=== PATIENT | female | born 1985 | race Two or more races ===

== ENCOUNTER 2018-01-03 11:10 | Emergency (ER) | payer MEDICAID ==
[~2018-01-03] VITALS: Ht 165.1 cm; Wt 104.3 kg
--- NOTE | 2018-01-03 11:10 | NUR ---
BB FROM A [facility] FOR [facility], FOUND LYING IN THE FLOOR, NAD NOTED, VSS, RESP EVEN AND UNLABORED, PT WAS PUT ON THE MONITOR, WAITING FOR MD BUNCH.
--- NOTE | 2018-01-03 12:27 | NUR ---
BLOOD SAMPLE AND URINE SAMPLE SENT TO LAB
[2018-01-03 12:32] LABS: BASOPHILS # (AUTO) 0.3 /CMM (0.0-0.2); BASOPHILS % (AUTO) 1.9 % (0.0-2.0); EOSINOPHILS % (AUTO) 0.3 % (0.0-6.0); HEMATOCRIT 35 % (33-45); HEMOGLOBIN 11.9 g/dL (11.5-14.8); LYMPHOCYTES % (AUTO) 12.2 % (20.0-44.0); MEAN CORPUSCULAR HEMOGLOBIN 26 PG (26.0-33.0); MEAN CORPUSCULAR HGB CONC 34 g/dl (31.0-36.0); MEAN CORPUSCULAR VOLUME 77 fL (82-100); MONOCYTES # (AUTO) 0.7 /CMM (0.1-1.30); NEUTROPHILS # (AUTO) 13.4 /CMM (1.8-8.9); NEUTROPHILS % (AUTO) 81.6 % (43.0-81.0); PLATELET COUNT (AUTO) 329 /CMM (150-450); RDW COEFFICIENT OF VARIATION 14.9 (11.5-15.0); RED BLOOD CELL COUNT(AUTO) 4.56 MIL/uL (4.0-5.2); WHITE BLOOD COUNT (AUTO) 16.4 K/uL (4.3-11.0)
[2018-01-03 12:33] LABS: CALCIUM, SERUM 8.7 mg/dL (8.5-10.1); CREATININE 0.7 mg/dL (0.6-1.3); POTASSIUM 3.6 mmol/L (3.5-5.1)
[2018-01-03 12:37] LABS: ACETAMINOPHEN < 10 ug/ml (10-30); ALCOHOL, BLOOD < 3 mg/dL (0-0); SALICYLATE 2.4 mg/dL (2.8-20.0)
[2018-01-03 12:38] LABS: ALBUMIN 3.6 g/dL (3.4-5.0); BILIRUBIN,TOTAL 0.4 mg/dL (0.2-1.0); TOTAL PROTEIN, SERUM 8.1 g/dL (6.4-8.2)
[2018-01-03 12:40] LABS: APPEARANCE,URINE Clear (CLEAR); BILIRUBIN,URINE Negative (NEGATIVE); BLOOD, URINE Moderate Ery/uL (NEGATIVE); COLOR,URINE Yellow (YELLOW); KETONES,URINE Negative (NEGATIVE); LEUKOCYTE ESTERASE ,URINE Negative (NEGATIVE); NITRITE, URINE Negative (NEGATIVE); PROTEIN,URINE Negative (NEGATIVE); UGLUCOSE Negative (NEGATIVE); UROBILINOGEN,URINE 0.2 EU/dL (0.2)
[2018-01-03 12:49] LABS: BACTERIA,URINE Rare /HPF (None Seen); SQUAMOUS EPITHELIAL CELL,UR Few /HPF (None Seen); WBC,URINE 0-2 /HPF (0-3); YEAST,URINE Rare /HPF (None Seen)
--- NOTE | 2018-01-03 13:30 | NUR ---
PT IS UNABLE TO STAY STILL FOR CT SCAN. ER WILL CALL WHEN READY.
[2018-01-03] MEDS ORDERED: LORAZEPAM INJ 2 MG/ML VIAL IM ONE (14:00)
[2018-01-03] MEDS ORDERED: LORAZEPAM INJ 2 MG/ML VIAL ONE (14:04)
[2018-01-03 14:05] LABS: BAND % (MANUAL) 1 % (0.0-5.0); NEUTROPHILS % (MANUAL) 82 (42-76)
[2018-01-03 14:06] LABS: LYMPHOCYTES % (MANUAL) 16 % (16-48); MONOCYTES % (MANUAL) 1 % (0-11.0)
--- NOTE | 2018-01-03 16:20 | NUR ---
Patient is resting comfortably in bed with eyes closed. Easily aroused. VSS
[2018-01-03] MEDS ORDERED: AZITHROMYCIN 250 MG TABLET ONE (23:00)
[2018-01-03] MEDS ORDERED: AZITHROMYCIN 250 MG TABLET PO ONE (23:00)
--- NOTE | 2018-01-03 23:30 | NUR ---
RECEIVED REPORT AT THIS TIME. RESP EVEN AND UNLABORED. RESTING WITH NO S/S OF DISTRESS. ON MONITOR
--- NOTE | 2018-01-04 00:59 | NUR ---
AWAKE AND DENIES ANY DISTRESS. RESP EVEN AND UNLABORED.
--- NOTE | 2018-01-04 02:00 | NUR ---
Patient discharged to home in stable condition. Written and verbal after care instructions given. Patient verbalizes understanding of instruction. ambulatory with a steady gait
[2018-01-04 05:06] VITALS: BP 128/77
== END 2018-01-04 02:00 | disposition home or self-care (01) ==
LOC: ER 11:11
DX: G93.40 Encephalopathy, unspecified (principal); F15.10 Other stimulant abuse, uncomplicated; R51 Headache
CPT/HCPCS: 36415; 70450; 71045; 80053; 80305; 80329; 81001; 84703; 85025; 96372; 99285; A4606; G0480 ×2; J2060; Z7610; 81000-TC